=== PATIENT | female | born 1955 | race Caucasian/White ===

== ENCOUNTER 2016-10-02 09:09 | Day surgery (SDC) | payer MEDICARE, OTHER ==
[~2016-10-02 09:09] MED LIST: ALBUTEROL2 PUFFS/17 IN; ASPIRIN 81MG TA81 MG PO; ATIVAN0.5 MG PO; BACLOFEN 10MG T10 MG PO; CIPRO 500MG TA500 MG PO; EC NAPROSYN500 MG PO; LASIX20 MG PO; MEDROL 4MG. DOSE4 MG PO; METOPROLOL25 MG PO; METOPROLOL50 MG PO; PRILOSEC20 M1 PO; STERAPRED DS10 MG PO; SYMBICORT1 AE1 IH; TESSALON PERLE100 M1 PO; TOPROL XL 50MG50 MG PO; VITAMIN D1000 IU PO
--- NOTE | 2016-10-02 10:05 | Operative Note ---
Endoscopy Report Date: 10/02/16 Preoperative diagnosis: History of Jordan's esophagitis Procedure Type of procedure: Esophagogastroduodenoscopy with biopsies Indications: 60-year-old white female. Previous upper endoscopy revealed Jordan 's esophagus. In September 2015 she had colonoscopy as well as upper endoscopy. At that time there were no findings of Jordan's esophagus by biopsy of the gastroesophageal junction. She did have a single tubular adenoma. Her symptoms of reflux have been controlled with generic Nexium. Plan was made for follow-up surveillance for history of Jordan's. Consent was obtained and patient was taken to same-day surgery endoscopy procedure room. She was positioned in a lateral decubitus position. Adequate intravenous sedation was achieved. Olympus endoscope was inserted via the oropharynx and advanced through the esophagus. Esophagus appeared normal. There was findings possibly suggestive of Jordan's esophagus at the gastroesophageal junction. Stomach was cannulated and insufflated. Retroflexion revealed a very small hiatal hernia. Gastric antral mucosal biopsy was obtained for CLOtest for H. pylori. Within the duodenal bulb there was some polypoid lesions which were biopsied. Duodenal sweep was unremarkable. Endoscope was withdrawn to the distal esophagus and several biopsies were obtained at the gastroesophageal junction circumferentially to evaluate for Jordan's esophagus. Endoscope was withdrawn. Findings: Possible Jordan's esophagus Very small hiatal hernia Polypoid lesions in the duodenal bulb Recommendations: Likely plan for follow-up endoscopy in one to 2 years pending the pathology. She will need a colonoscopy in 4 years continue proton pump inhibitors. at 1002
[2016-10-02 13:41] VITALS: BP 118/45
== END 2016-10-02 10:48 | disposition home or self-care (01) ==
LOC: SDC 09:09
PROVIDERS: Surgery
PROC: 0DB68ZX Excision of Stomach, Via Natural or Artificial Opening Endoscopic, Diagnostic (ICD-10-PCS; 2016-10-02)
PROC: 0DB48ZX Excision of Esophagogastric Junction, Via Natural or Artificial Opening Endoscopic, Diagnostic (ICD-10-PCS; 2016-10-02)
PROC: 0DB98ZX Excision of Duodenum, Via Natural or Artificial Opening Endoscopic, Diagnostic (ICD-10-PCS; principal; 2016-10-02 09:30)
DX: K22.70 Barrett's esophagus without dysplasia (principal); K44.9 Diaphragmatic hernia without obstruction or gangrene; K31.7 Polyp of stomach and duodenum

== ENCOUNTER → 2017-07-09 | Outpatient (CLI) | payer OTHER, MEDICARE ==
[2017-07-09 12:27] LABS: HEMOGLOBIN 11.7 g/dL (12.2-16.2); LYMPH % 22.4 % (10-50.0)
[2017-07-09 13:27] LABS: BUN 25 mg/dL (7-18)
[2017-07-09 13:30] LABS: GFR (ESTIMATED) 63 ML/MIN (59-)
== END ==
LOC: LAB 12:01
PROVIDERS: Nurse Practitioner Family
DX: Z00.00 Encounter for general adult medical examination without abnormal findings (principal); E78.00 Pure hypercholesterolemia, unspecified; I10 Essential (primary) hypertension; R58 Hemorrhage, not elsewhere classified